=== PATIENT | male | born 1945 | race Caucasian/White ===

== ENCOUNTER 2016-07-28 15:26 | Emergency (ER) | payer OTHER ==
[~2016-07-28] VITALS: Ht 165.1 cm; Wt 82.1 kg
[~2016-07-28 15:26] MED LIST: GLIP5TAB13 PO; LISI30TA36 PO; MELO15TA13 PO; METF-305 PO; PIOG15TA66 PO; PRO40 PO; SITA50TA3 PO
[2016-07-28 15:31] VITALS: BP_SYST 144
[2016-07-28 15:54] LABS: BILIRUBIN,URINE NEGATIVE (NEGATIVE); BLOOD, URINE NEGATIVE (NEGATIVE); CLARITY/URINE CLEAR (CLEAR); COLOR,URINE YELLOW (YELLOW); GLUCOSE,URINE 3+ (NEGATIVE); KETONES,URINE NEGATIVE (NEGATIVE); LEUKOCYTE ESTERASE ,URINE NEGATIVE (NEGATIVE); NITRITE, URINE NEGATIVE (NEGATIVE); PH,URINE 5.5 (5.0-8.0); PROTEIN URINE NEGATIVE (NEGATIVE); UROBILINOGEN,URINE 0.2 (0.2-1.0)
[2016-07-28] MEDS ORDERED: NACL 0.9% 1,000 ML IV ONE (16:00)
[2016-07-28] MEDS ORDERED: INSULIN REGULAR, HUMAN 10 UNITS/0.1 ML INJ IVP ONE (16:00)
[2016-07-28 16:12] LABS: BASOPHILS % (AUTO) 0.5 % (0.0-2.0); EOSINOPHILS # (AUTO) 0.2 K/uL (0.0-0.4); EOSINOPHILS % (AUTO) 3.8 % (0.0-4.0); HEMATOCRIT 40.9 % (36-54); HEMOGLOBIN 14.2 g/dL (14.0-18.0); LYMPHOCYTES # (AUTO) 0.9 K/uL (1.0-5.5); LYMPHOCYTES % (AUTO) 13.8 % (20.5-51.5); MEAN CORPUSCULAR HEMOGLOBIN 32 pg (27-31); MEAN CORPUSCULAR HGB CONC 35 % (32-36); MEAN CORPUSCULAR VOLUME 91 fL (79.0-98.0); MONOCYTES # (AUTO) 0.4 K/uL (0.0-1.0); MONOCYTES % (AUTO) 5.6 % (1.7-9.3); NEUTROPHILS # (AUTO) 4.9 K/uL (1.8-7.7); NEUTROPHILS % (AUTO) 76.3 % (40.0-70.0); PLATELET COUNT (AUTO) 198 K/uL (130-430); RED BLOOD CELL COUNT(AUTO) 4.51 MIL/uL (4.2-6.2); RED CELL DISTRIBUTION WIDTH 13.1 % (9.0-15.0); WHITE BLOOD COUNT (AUTO) 6.4 K/uL (4.8-10.8)
[2016-07-28 16:21] LABS: CALCIUM 8.7 mg/dL (8.4-11.0); CREATININE 0.96 mg/dL (0.55-1.30); POTASSIUM 3.5 mmol/L (3.5-5.1)
[2016-07-28 16:26] LABS: ALBUMIN 3.7 g/dL (3.4-4.8); TOTAL BILIRUBIN 0.4 mg/dL (0.0-1.0); TOTAL PROTEIN, SERUM 7.4 g/dL (6.4-8.3)
[2016-07-28 16:56] VITALS: BP_SYST 138
== END 2016-07-28 16:56 | disposition home or self-care (01) ==
LOC: SED 15:26
DX: R33.9 Retention of urine, unspecified (principal); F10.20 Alcohol dependence, uncomplicated; I10 Essential (primary) hypertension; E11.8 Type 2 diabetes mellitus with unspecified complications; E78.5 Hyperlipidemia, unspecified; Z79.4 Long term (current) use of insulin; Z85.46 Personal history of malignant neoplasm of prostate
CPT/HCPCS: 36415; 80053; 81003; 82962; 85025; 96361; 96374; 99284; J7030; J1815

== ENCOUNTER 2020-04-19 12:05 | Emergency (ER) | payer OTHER, SELFPAY ==
[~2020-04-19] VITALS: Ht 165.1 cm; Wt 84.4 kg
[2020-04-19 12:05] VITALS: BP_SYST 135
[~2020-04-19 12:05] MED LIST changes: -METF-305 PO; +METF-381 PO; -PIOG15TA66 PO; +PIOG15TA8 PO
--- NOTE | 2020-04-19 12:05 | NUR ---
TAKEN OUT TO OUTSIDE TENT AND TRIAGED. AWAITING AVAILABLE BED.
--- NOTE | 2020-04-19 12:24 | NUR ---
DR SIMPSON TO OUTSIDE TENT FOR EVALUATION
--- NOTE | 2020-04-19 12:30 | NUR ---
EKG DONE AND GIVEN TO DR SIMPSON FOR EVALUATION
--- NOTE | 2020-04-19 14:50 | NUR ---
Pt to lab for blood draw.
[2020-04-19 15:15] LABS: ANION GAP 9 (5-15); CALCIUM 9.4 mg/dL (8.4-11.0); CHLORIDE 101 mmol/L (98-107); CREATININE 1.05 mg/dL (0.55-1.30); GLUCOSE 165 mg/dL (70-99); POTASSIUM 4.2 mmol/L (3.5-5.1); SODIUM SERUM 136 mmol/L (136-145); UREA NITROGEN, BLOOD 23 mg/dL (8-21)
[2020-04-19 15:16] LABS: BASOPHILS % (AUTO) 0.6 % (0.0-2.0); EOSINOPHILS # (AUTO) 0.1 K/uL (0.0-0.4); EOSINOPHILS % (AUTO) 1.9 % (0.0-4.0); HEMATOCRIT 43.6 % (36-54); HEMOGLOBIN 14.9 g/dL (14.0-18.0); LYMPHOCYTES # (AUTO) 0.6 K/uL (1.0-5.5); MEAN CORPUSCULAR HEMOGLOBIN 32 pg (27-31); MEAN CORPUSCULAR HGB CONC 34 % (32-36); MEAN CORPUSCULAR VOLUME 93 fL (79.0-98.0); MONOCYTES % (AUTO) 17.5 % (1.7-9.3); NEUTROPHILS # (AUTO) 4.1 K/uL (1.8-7.7); PLATELET COUNT (AUTO) 227 K/uL (130-430); RED CELL DISTRIBUTION WIDTH 13.4 % (9.0-15.0); WHITE BLOOD COUNT (AUTO) 5.9 K/uL (4.8-10.8)
[2020-04-19 15:22] LABS: ALANINE AMINOTRANSFERASE 30 U/L (12-78); ASPARTATE AMINOTRANSFERASE 21 U/L (10-37); LACTATE DEHYDROGENASE 151 U/L (85-227); TOTAL BILIRUBIN 0.6 mg/dL (0.0-1.0)
[2020-04-19 15:27] LABS: C-REACTIVE PROTEIN QUANT 1.3 mg/dL (0-0.5)
--- NOTE | 2020-04-19 16:31 | NUR ---
Nasal swab obtained to r/o covid as per MD order. Sample sent to lab, pt tolerated well.
[2020-04-19] MEDS ORDERED: ACETAMINOPHEN 500 MG TABLET ONE (16:38)
[2020-04-19] MEDS ORDERED: ACETAMINOPHEN 500 MG TABLET PO ONE (16:45)
[2020-04-19 17:25] VITALS: BP_SYST 135
--- NOTE | 2020-04-19 17:25 | NUR ---
Patient given written and verbal discharge instructions and verbalizes understanding. ER MD discussed with patient the results and treatment provided. Patient in stable condition. ID arm band removed. No prescriptions given. Patient educated on pain management and to follow up with PMD. Pain Scale 0. Opportunity for questions provided and answered. Medication side effect fact sheet provided.
== END 2020-04-19 17:25 | disposition home or self-care (01) ==
LOC: SED 12:05
DX: U07.1 COVID-19 (principal); I10 Essential (primary) hypertension; E11.9 Type 2 diabetes mellitus without complications; Z79.84 Long term (current) use of oral hypoglycemic drugs; Z79.899 Other long term (current) drug therapy
CPT/HCPCS: 36415; 71045; 80053; 82550; 82728; 83605; 83615; 83880; 84484; 85025; 85379; 86140; 93005; 99285; C9803; U0003

== ENCOUNTER 2022-07-01 05:52 | Emergency (ER) | payer OTHER ==
[~2022-07-01] VITALS: Ht 165.1 cm; Wt 79.8 kg
[2022-07-01 06:01] VITALS: BP_SYST 149
--- NOTE | 2022-07-01 06:01 | NUR ---
Triaged and placed patient to ER bed 8 for evaluation. No acute respiratory distress at this time. VSS. Informed patient to notify ED staff for any changes in condition or worsening of symptoms while waiting to be seen by a provider. Patient verbalized understanding.
--- NOTE | 2022-07-01 06:08 | NUR ---
Dr. Moss bedside for pt eval
--- NOTE | 2022-07-01 06:10 | NUR ---
Pt BIB family to ED C/O constipation after a colonoscopy four days ago. Pt denies abdominal pain. Pt denies fever, chills, nausea or vomiting. Pt denies chest pain or SOB. Pt took MiraLax and stool soften without improvement. Pt denies dysuria. Pt denies melena. Pt reports passing small clots
[2022-07-01] MEDS ORDERED: MAGN296S8 PO (06:21)
[2022-07-01 06:25] VITALS: BP_SYST 138
--- NOTE | 2022-07-01 06:25 | NUR ---
Patient given written and verbal discharge instructions and verbalizes understanding. ER MD discussed with patient the results and treatment provided. Patient in stable condition. ID arm band removed. Rx of Mag Citrate given. Patient educated on pain management and to follow up with PMD. Pain Scale 0/10 Opportunity for questions provided and answered. Medication side effect fact sheet provided.
== END 2022-07-01 06:25 | disposition home or self-care (01) ==
LOC: SED 05:52
DX: K59.00 Constipation, unspecified (principal); E78.5 Hyperlipidemia, unspecified; E11.9 Type 2 diabetes mellitus without complications; I10 Essential (primary) hypertension; Z79.899 Other long term (current) drug therapy
CPT/HCPCS: 99282

== ENCOUNTER 2023-07-27 10:29 | Emergency (ER) | payer OTHER ==
[~2023-07-27] VITALS: Ht 165.1 cm; Wt 70.8 kg
[~2023-07-27 10:29] MED LIST changes: +MAGN296S8 PO
[2023-07-27 10:39] VITALS: BP_SYST 180; PULSE 82; RESP 18; TEMP 97.6; O2SAT 95
[2023-07-27] MEDS: KETOROLAC TROMETHAMINE 30 MG VIAL IM ONE (11:17)
[2023-07-27 11:34] LABS: BASOPHILS # (AUTO) 0.1 K/uL (0.0-0.2); BASOPHILS % (AUTO) 1.3 % (0.0-2.0); EOSINOPHILS # (AUTO) 0.2 K/uL (0.0-0.4); EOSINOPHILS % (AUTO) 2.7 % (0.0-4.0); HEMATOCRIT 41.7 % (36-54); HEMOGLOBIN 14.2 g/dL (14.0-18.0); LYMPHOCYTES # (AUTO) 1.8 K/uL (1.0-5.5); LYMPHOCYTES % (AUTO) 23.7 % (20.5-51.5); MEAN CORPUSCULAR HEMOGLOBIN 30 pg (27-31); MEAN CORPUSCULAR HGB CONC 34 % (32-36); MEAN CORPUSCULAR VOLUME 89 fL (79.0-98.0); MONOCYTES # (AUTO) 0.6 K/uL (0.0-1.0); MONOCYTES % (AUTO) 7.6 % (1.7-9.3); NEUTROPHILS # (AUTO) 4.9 K/uL (1.8-7.7); NEUTROPHILS % (AUTO) 64.7 % (40.0-70.0); PLATELET COUNT (AUTO) 225 K/uL (130-430); RED BLOOD CELL COUNT(AUTO) 4.68 MIL/uL (4.2-6.2); RED CELL DISTRIBUTION WIDTH 13.5 % (9.0-15.0); WHITE BLOOD COUNT (AUTO) 7.6 K/uL (4.8-10.8)
[2023-07-27 11:56] LABS: ANION GAP 8 (5-15); CARBON DIOXIDE 24 mmol/L (23-29); CHLORIDE 103 mmol/L (98-107); CREATININE 1.12 mg/dL (0.55-1.30); GLUCOSE 268 mg/dL (74-106); POTASSIUM 3.7 mmol/L (3.5-5.1); SODIUM SERUM 135 mmol/L (136-145); UREA NITROGEN, BLOOD 26 mg/dL (8-21)
[2023-07-27 11:59] LABS: URIC ACID 3.4 mg/dL (2.4-7.0)
[2023-07-27] MEDS: predniSONE 20 MG TABLET PO ONE (12:29)
[2023-07-27] MEDS ORDERED: BACI15OI13 TP (12:52)
[2023-07-27] MEDS: COLCHICINE 0.6 MG TABLET PO ONE (12:54)
[2023-07-27] MEDS ORDERED: HYDR-3917 PO (12:58)
[2023-07-27] MEDS ORDERED: IBUP-1969 PO (12:58)
[2023-07-27] MEDS ORDERED: COLC0.6T67 PO (12:58)
[2023-07-27] MEDS ORDERED: PRED20TA PO (12:58)
[2023-07-27 13:16] VITALS: BP_SYST 127; PULSE 83; RESP 17; TEMP 97.6; O2SAT 96
== END 2023-07-27 13:11 | disposition home or self-care (01) ==
LOC: SED 10:29
DX: M19.032 Primary osteoarthritis, left wrist (principal); M10.032 Idiopathic gout, left wrist; E11.9 Type 2 diabetes mellitus without complications; I10 Essential (primary) hypertension; Z85.46 Personal history of malignant neoplasm of prostate; Z79.899 Other long term (current) drug therapy
CPT/HCPCS: 99284; 80048; 84550; 85025; 36415; 73100; 96372; J7512; J1885